=== PATIENT | male | born 1955 | race Caucasian/White ===

== ENCOUNTER 2019-03-09 08:08 | Outpatient (CLI) | payer BC ==
--- NOTE | 2019-03-09 09:08 | MRI ---
MRI OF BRAIN WITHOUT CONTRAST: 03/09/19 HISTORY: Abnormal gait. Loss of balance. FINDINGS: No restricted diffusion is seen. No evidence of infarct, hemorrhage, midline shift, or abnormal extra -axial fluid collections are seen. The ventricular size is normal and the basilar cisterns patent. No signal abnormalities are noted on the highly sensitive FLAIR images. No blood products are noted on the gradient echo sequences. There is mucocele cyst versus a polyp on the floor of the right maxillar y sinus. IMPRESSION: Unremarkable unenhanced MRI OF the brain. POS: YON
== END 2019-03-09 08:09 | disposition home or self-care (01) ==
LOC: SCSMRI 08:08
PROVIDERS: ATTEND Psychiatry & Neurology Neurology
DX: R26.89 Other abnormalities of gait and mobility (principal)
CPT/HCPCS: 70551

== ENCOUNTER 2019-05-06 07:31 | Outpatient (CLI) | payer BC ==
--- NOTE | 2019-05-06 09:46 | RAD ---
EXAM: Cervical spine 3 views including flexion and extension views HISTORY: Pain, thoracic pain, abnormal gait issues COMPARISON: Cervical spine MRI FINDINGS: No evidence for acute fracture or dislocation involving the visualized spine. There are disc osteophytosis and facet arthrosis changes. No abnormal retrolisthesis or anterolisthesis or evidence for abnormal translation between flexion an d extension. No evidence for a bone lesion. IMPRESSION: Spondylosis. No significant acute process.
--- NOTE | 2019-05-06 11:01 | MRI ---
MRI CERVICAL SPINE WITHOUT CONTRAST: HISTORY: Balance issues. Pain. Bilateral leg weakness and imbalance x1 year. COMPARISON: None. TECHNIQUE: A cervical spine MRI is performed without intravenous Gadolinium administration. Multisequential, mul tiplanar imaging is performed. FINDINGS: Straightening of normal cervical lordosis may be due to patient position or muscle spasm. No signific ant STIR hyperintensity to suggest vertebral body edema or ligamentous injury. Appropriate T1 marrow signal intensity of the cervical vertebrae. Cervical spine vertebral body heigh t is maintained. No fracture. Spondylolisthesis: 2.0 mm of retrolisthesis of C3 upon C4 1.6 mm of retrolisthesis of C4 upon C5 1.4 mm of retrolisthesis of C5 upon c6 The visualized brain parenchyma, cervicomedullary junction and cervical cord from C2 through C5 is un remarkable. The cervical cord at C7 and the upper thoracic cord have appropriate signal intensity. C2-C3: No significant central canal stenosis or significant neural foraminal narrowing. C3-C4: Broad-based disk osteophyte complex causes mass effect upon the left and right aspects of the central spinal canal. There is mass effect and deformity of the right hemicord without cord hyperinte nsity. Mild to moderate central canal stenosis. Moderate to severe bilateral neural foraminal narrowi ng due to uncovertebral hypertrophy. C4-C5: Broad-based disk osteophyte complex effaces the subarachnoid space. There is mass effect and d eformity of the cervical cord. Moderate to severe central canal stenosis. Moderate to severe bilatera l neural foraminal narrowing due to uncovertebral hypertrophy. C5-C6: Broad-based disk osteophyte complex effaces the subarachnoid space. There is moderate to sever e central canal stenosis. Moderate to severe bilateral foraminal narrowing. At the C6 vertebral body there appears to be a large ossific lesion, measuring 1.1 cm anterior-camp director ior x 1.0 cm medial-lateral. On the T1 and T2 weighted images the signal intensity is similar to the adjacent osseous structures. There is resultant severe central canal stenosis with rightward deviatio n of the cord. There is T2 cord hyperintensity. Mild bilateral neural foraminal narrowing. C6-C7: There is T2 hyperintensity in the cord, likely representing cord edema. C7-T1: The rightward deviated cord does come back to midline and there is no significant central rafal l stenosis or significant foraminal narrowing. IMPRESSION: Severe central canal stenosis at C6-C7 with rightward deviation of the cord and T2 hyperintensity in the cord. The mass effect and deviation are presumed to be due to an osseous structure in the central spinal canal. Better interrogation with a cervical myelogram is recommended. CODE T POS: OFF
--- NOTE | 2019-05-06 11:20 | MRI ---
MRI THORACIC SPINE WITHOUT CONTRAST: HISTORY: Bilateral leg weakness and imbalance x1 year. COMPARISON: None. FINDINGS: Appropriate T1 marrow signal intensity of the thoracic vertebrae. Thoracic spine vertebral body heigh t is maintained. There is no fracture. No significant STIR hyperintensity to suggest vertebral body e jennie or ligamentous injury. Appropriate signal intensity of the paraspinal muscles. Appropriate signal intensity of the visualized mediastinum, lung parenchyma and solid organs. The thoracic cord has a normal size and signal intensity. No cord expansion. No cord malacia. The con us medullaris extends beyond the T12 level. T3-T4: Minimal left and right paracentral disk bulges with minimal central canal stenosis. T4-T5: T5-T6: Left paracentral disk bulge with mild central canal stenosis. T6-T7: Broad-based disk bulge with mild central canal stenosis. Subarachnoid space is effaced ventral ly. Minimal flattening of the thoracic cord. T7-T8: Left paracentral disk bulge abuts the thecal sac. Mild central canal stenosis. T8-T9: Based on the sagittal images, T8-T9 has mild central canal stenosis. T9-T10: Mild central canal stenosis due to left and right paracentral disk bulges. IMPRESSION: Mild degenerative changes of the thoracic spine. No cord signal abnormality. POS: OFF
== END 2019-05-06 07:32 | disposition home or self-care (01) ==
LOC: MRI 07:31 → RAD 07:32
PROVIDERS: ATTEND Neurological Surgery
DX: R26.89 Other abnormalities of gait and mobility (principal); M54.6 Pain in thoracic spine; M47.812 Spondylosis without myelopathy or radiculopathy, cervical region; M47.816 Spondylosis without myelopathy or radiculopathy, lumbar region; M48.02 Spinal stenosis, cervical region
CPT/HCPCS: 72040; 72050; 72141; 72146

== ENCOUNTER 2019-05-19 16:10 | Outpatient (CLI) | payer BC ==
--- NOTE | 2019-05-19 16:59 | CT ---
CT CERVICAL SPINE WITHOUT CONTRAST: 05/19/19 INDICATIONS: Cervical myelopathy. Correlation made to MRI performed 05/06/19 which revealed a mass lesion in the spinal canal at C6. FINDINGS: Moderate degenerative changes of the cervical spine noted. Loss of disc space with degenerative hyper trophic changes are seen at all levels, most prominent at C4-5 and C5-6. Slight posterolisthesis at C 3-4, C4-5 and C5-6 is noted. Prominent posterior spondylosis at these levels. At C3-4, spondylitic change abuts the anterior cord. Facet and uncinate hypertrophy results in right foraminal stenosis. There is displacement of the traversing right nerve root. At C4-5, posterior spondylosis impinges on a compressive anterior cord. Bilateral foraminal stenosi s due to bony hypertrophic change. At C5-6, posterior spondylitic changes compress the anterior cord. Bilateral foraminal stenosis due t o facet and uncinate hypertrophy. There is a large calcification which appears to project from the facet joint on the left at C6-7 into the spinal canal. This large hypertrophic calcification measures up to 1.5 cm in axial plane. It res ults in severe central canal stenosis and cord compression. There is associated severe left foramina l stenosis due to this hypertrophic change and intraspinal calcification. At C7-T1, no significant abnormality. IMPRESSION: 1. A large hypertrophic calcification arises from the facet joint on the left at C6-C7 and proje cts into the spinal canal producing severe central canal stenosis and cord compression. There is kavya re left foraminal stenosis at this level. This calcification within the spinal canal measures 1.5 cm. 2. Spondylitic changes are also noted at C3-4, C4-5 and C5-6 with central canal and foraminal st enosis at these levels as described above. POS: TPC
== END 2019-05-19 16:11 | disposition home or self-care (01) ==
LOC: SCSCT 16:10
PROVIDERS: ATTEND Neurological Surgery
DX: G95.89 Other specified diseases of spinal cord (principal); M46.92 Unspecified inflammatory spondylopathy, cervical region; M48.02 Spinal stenosis, cervical region; M50.823 Other cervical disc disorders at C6-C7 level; G95.20 Unspecified cord compression
CPT/HCPCS: 72125

== ENCOUNTER 2019-05-20 05:42 | Inpatient (IN) | payer BC ==
[2019-05-19 11:29] VITALS: BMI 25.7
[2019-05-20] MEDS ORDERED: Sodium Chloride 0.9% 10 ML ONE (06:15)
[2019-05-20] MEDS ORDERED: Bacitracin Zinc Ointment 30 gm TUBE ONE (06:15)
[2019-05-20] MEDS ORDERED: Bupivacaine HCl 0.5%/Epinephrine 1:200,000/PF 30 ml Vial ONE (06:15)
[2019-05-20] MEDS ORDERED: Thrombin 5000 UNITS/5 ML VIAL ONE (06:15)
[2019-05-20] MEDS ORDERED: Midazolam HCl 2 mg/2 ml Vial ONE (06:31)
[2019-05-20] MEDS ORDERED: Fentanyl 250 MCG/5 ML VIAL ONE (06:31)
[2019-05-20 06:52] LABS: #Lymphocytes 1.4 thou/uL (1.20-3.40); #Monocytes 0.6 thou/uL (0.11-0.59); %Basophils 0.4 % (0.0-1.0); %Eosinophils 0.3 % (0.0-10.0); %Lymphocytes 17.9 % (21.0-51.0); %Monocytes 6.9 % (0.0-10.0); %Neutrophils 74.5 % (42.0-75.0); Mean Corpuscular HGB CONC 35.3 g/dL (32.0-36.0); Mean Corpuscular Hemoglobin 32.7 pg (27.0-31.0); Mean Corpuscular Volume 92.5 fL (78.0-98.0); Platelet Count 269 thou/uL (130-400); RBC Distribution Width 12.1 % (11.5-14.5); Red Blood Cell (RBC) Count 4.59 mill/uL (4.70-6.10); White Blood Cell (WBC) Count 8.1 thou/uL (4.8-10.8)
[2019-05-20 06:56] LABS: INR-International Normal Ratio 0.9; PTT 24.1 SEC (22.9-36.1); Prothrombin Time 12.1 SEC (12.0-14.7)
[2019-05-20] MEDS ORDERED: Pantoprazole 40 MG VIAL ONE (07:28)
[2019-05-20] MEDS ORDERED: Phenylephrine HCL 10 MG/ML VIAL ONE (07:48)
[2019-05-20] MEDS ORDERED: Sodium Chloride 0.9% 20 ML ONE (09:10)
[2019-05-20] MEDS ORDERED: SUGAMMADEX SODIUM 200 MG/2 ML VIAL ONE (12:00)
[2019-05-20] MEDS ORDERED: Morphine 2 MG/ML SYRINGE SLOW IVP PRN (12:06)
[2019-05-20] MEDS ORDERED: Acetaminophen/Codeine 30-300mg Tablet PO PRN ×2 (12:06)
[2019-05-20] MEDS ORDERED: Bisacodyl 10 MG SUPP PR PRN (12:06)
[2019-05-20] MEDS ORDERED: HYDROcodone/Acetaminophen 7.5/325 mg Tablet PO PRN (12:06)
[2019-05-20] MEDS ORDERED: tiZANidine HCl 4 MG TAB PO PRN (12:06)
[2019-05-20] MEDS ORDERED: Morphine 4 MG/ML VIAL SLOW IVP PRN (12:06)
[2019-05-20] MEDS ORDERED: diphenhydrAMINE 50 MG/ML VIAL IVP PRN (12:06)
[2019-05-20] MEDS ORDERED: Acetaminophen 325 MG TAB PO PRN (12:06)
[2019-05-20] MEDS ORDERED: Fleet Enema 133 ML BOT PR PRN (12:06)
[2019-05-20] MEDS ORDERED: Promethazine 25 MG TAB PO PRN (12:06)
[2019-05-20] MEDS ORDERED: diphenhydrAMINE 25 MG CAP PO PRN (12:06)
[2019-05-20] MEDS ORDERED: traMADol HCl 50 MG TAB PO PRN ×2 (12:06)
[2019-05-20] MEDS ORDERED: Promethazine HCl 12.5 MG SUPP PR PRN (12:06)
[2019-05-20] MEDS ORDERED: Promethazine HCl 25 MG/ML VIAL IM PRN ×2 (12:06→12:19)
[2019-05-20] MEDS ORDERED: Ondansetron PF 4 MG/2 ML Vial IVP PRN (12:06)
[2019-05-20] MEDS ORDERED: Acetaminophen 650 MG Suppository PR PRN (12:06)
[2019-05-20] MEDS ORDERED: Scopolamine 1.5 mg/72 hour Patch TD SCH (12:15)
[2019-05-20] MEDS ORDERED: Promethazine HCl 25 MG/ML VIAL SLOW IVP PRN (12:19)
[2019-05-20] MEDS ORDERED: Ondansetron HCl/PF 4 MG/2 ML Vial IVP PRN (12:19)
[2019-05-20] MEDS ORDERED: Morphine 4 MG/ML VIAL ONE (12:30)
[2019-05-20] MEDS ORDERED: Fentanyl 100 MCG/2 ML VIAL ONE (12:50)
[2019-05-20] MEDS: Sodium Chloride 0.9% 1,000 ML IV SCH (13:25)
[2019-05-20] MEDS: CEFAZOLIN 2 GM in Premix Bag 1 BAG IVPB SCH ×2 (16:03→21:00)
--- NOTE | 2019-05-20 17:38 | OP ---
DATE OF PROCEDURE: 05/20/2019 REPEAT CHIEF: None. PREOPERATIVE INDICATION: Prevent further neurological deterioration. 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 PROCEDURES PERFORMED: Decompressive laminectomy, facetectomy, and foraminotomy , C3, C4, C5, C6, and C7; microsurgical resection of massive osteophyte from left C6- C7 facet joint; lateral mass screw and enrique instrumentation, C6-C7; posterolateral arthrodesis, C6-C7; local morselized autograft and morselized allograft; and operating microscope. PREOPERATIVE MEDICATIONS: Ancef 2 g IV. DRAIN NUMBER: One. DRAIN TYPE: 10-Kinyarwanda Tu. DESCRIPTION OF PROCEDURE: The patient was brought to the operating room. General endotracheal anesthesia was induced. A Corona pin and housekeeper head were attached to the patient's head. Keeping the neck in normal anatomic alignment, we carefully rolled the patient into the prone position with his chest and hips supported by gel-filled chest rolls. We mobilized the head with the Corona attachment for the operating table. Hair was removed from the back of the scalp with electric clippers. We marked a midline incision on the back of the neck. A lateral fluoro radiograph was used to help plan our incision. The back of the neck was sterilely prepped and draped. We opened with a 10 blade knife and controlled bleeding with bipolar and monopolar cautery. We used monopolar cautery to dissect through subcutaneous tissues to the ligamentum nuchae. We incised the ligament in the middle and reflected the paraspinal muscles off the spinous processes and laminae from C3 through C7. Self-retaining retractors were placed, and a lateral fluoro radiograph confirmed the levels upon which we were operating. We then used a Leksell bone rongeur to remove the spinous processes from C3 to the top of C7. We thinned the laminae with the Stille rongeurs. We then began our decompression with a 2 mm Kerrison rongeur and fashioned the laminectomy at C5, C4, and C3. We widened our laminectomy defect at each level until we were lateral to the dura. We controlled epidural bleeding with gentle bipolar cautery and small pledgets of Gelfoam. At C6 and C7, the laminectomy was extremely arduous given the bony osteophyte on the left side of the canal just under the lamina. Using a high-speed drill and a katerin bur, we thinned the superior portion of the C7 lamina until we were at the ventral cortical bone. We thinned the C6 lamina as well. Using a 1 mm Kerrison rongeur, we started our C6 and C7 laminectomy by biting inferiorly down the left-sided C7 lamina and then across. Once the C7 lamina was removed and yellow ligament was removed, we could access the C6 lamina more safely, and this was removed with 1 and 2 mm Kerrison rongeurs. We widened our laminectomy defect on the right side until we were lateral to the dura. The enormous osteophyte of the medial portion of the facet joint at C6-C7 on the left side had grown into the spinal canal. It was occupying more than half of the diameter of the spinal canal. The operative microscope was brought in the field. Under microscopic magnification using microsurgical techniques, we carefully drilled away the connection between the C6-C7 facet joint and the osteophyte which had grown off it. We drilled and thinned the bone and then took multiple bites with 1 mm Kerrison rongeurs and drilled again in an iterative fashion. We thinned the bone and disconnected it. Eventually, the large bony osteophyte was freely mobile. It was smooth on its medial surface. Using Rhoton dissectors, we carefully dissected around it and it from the dura. The ventral aspect of the osteophyte was a bit more adherent, but with careful dissection, we eventually removed it in a single unit, and the dura relaxed significantly. We performed a medial facetectomy there until we were at the level of the pedicle and could visualize his both the C7 and the C8 nerve roots. The dura was intact, thankfully. We then used a 2 mm Kerrison rongeur to fashion to ensure our laminectomy was wide enough at each of the levels. We performed small foraminotomies to ensure that no nerve roots were compressed. We waxed the bone edges and controlled epidural bleeding with gentle bipolar cautery and small pledgets of Gelfoam. The C6-C7 facet joints were mobile, which was surprising given the huge osteophyte. I did not want the osteophyte to re-grow, so I elected to place lateral mass screws at C6 and C7. Operative microscope was taken out the field. Using a high-speed drill and a cutting bur, we chose entry points for our lateral mass screws. With a drill guide and a twist drill, we drilled out our trajectories for lateral mass screws superiorly and laterally at both C6 and C7. We probed the trajectories and found it completely encased in bone. We straight away placed 12 mm lateral mass screws at C6 and C7 bilaterally and dropped our rods into the screw heads. Using a counter-torque mechanism, we ensured that the caps were adequately torqued over the rods. We then irrigated copiously with bacitracin irrigation. We decorticated the lateral aspect of the lateral masses at C6 and C7 and over the decorticated bone. We left demineralized bone matrix and morselized autograft. The autograft was prepared from a laminectomy bone, which was cleaned of soft tissue attachments, morselized, and added into demineralized bone matrix as part of our posterolateral fusion substrate. We tunneled the drain inferiorly through a separate stab incision. We treated the wound with vancomycin powder, and we infused local anesthetic in the paraspinal muscles. We closed the wound in anatomical layers, and we applied a sterile dressing. This was a clean case, no contamination. Job ID: [id number] [facility]
[2019-05-20] MEDS: Dexamethasone 4 MG TAB PO SCH ×2 (18:07→23:50)
[2019-05-20] MEDS: HYDROcodone/Acetaminophen 7.5/325 mg Tablet PO PRN ×2 (18:31→22:36)
[2019-05-20] MEDS: Cyclobenzaprine 10 MG TAB PO PRN (22:35)
[2019-05-21] MEDS: Sodium Chloride 0.9% 1,000 ML IV SCH ×2 (03:02→18:42)
[2019-05-21] MEDS: HYDROcodone/Acetaminophen 7.5/325 mg Tablet PO PRN ×4 (04:27→23:38)
[2019-05-21] MEDS: Tamsulosin HCl 0.4 MG CAP PO SCH (05:59)
[2019-05-21] MEDS: Dexamethasone 4 MG TAB PO SCH ×4 (05:59→23:38)
[2019-05-21] MEDS: CEFAZOLIN 2 GM in Premix Bag 1 BAG IVPB SCH ×3 (05:59→21:37)
--- NOTE | 2019-05-21 06:59 | PRG ---
DATE OF SERVICE: 05/21/2019 Mr. Ortiz is one day out from a cervical laminectomy from C3 to C7 and posterolateral fusion at six C6-C7 for severe stenosis and a huge exophytic bone spur occupying the majority of the spinal canal at C6-C7. Overnight, Mr. Ortiz's neck has been sore. His drain output was recorded yesterday evening, but I do not see any other notes on our electronic charting system about the volume of drainage. The vital signs have been stable. Neurologically stable. There are no new deficits. No upper motor neuron weakness that I can appreciate. There is subjective improved sensation in the hands and feet. He was able to ambulate yesterday. Mr. Ortiz will have his drain monitored. Once the output is less than 5 mL/h on average, then the drain can be removed. We will give him one more dose of IV antibiotics after drain removal. He will work with Physical Therapy today and get back to safety with activities of daily living. Once the drain is out and he is safe, then he can be discharged. Job ID: [id number] [facility]
[2019-05-21] MEDS: Cyclobenzaprine 10 MG TAB PO PRN ×2 (08:52→18:15)
[2019-05-21] MEDS ORDERED: FLU VACC QS2019-20(6MOS UP)/PF 60 MCG/0.5 ML SYRINGE IM ONE (09:00)
[2019-05-21] MEDS ORDERED: Bisacodyl 5 MG TAB PO SCH (19:15)
[2019-05-22] MEDS: Sodium Chloride 0.9% 1,000 ML IV SCH (03:21)
[2019-05-22] MEDS: CEFAZOLIN 2 GM in Premix Bag 1 BAG IVPB SCH (03:22)
[2019-05-22] MEDS: Dexamethasone 4 MG TAB PO SCH (05:11)
[2019-05-22] MEDS: Tamsulosin HCl 0.4 MG CAP PO SCH (05:11)
[2019-05-22] MEDS: Cyclobenzaprine 10 MG TAB PO PRN (05:15)
[2019-05-22 07:34] VITALS: BP 138/77; TEMP 98.5
[2019-05-22] MEDS: HYDROcodone/Acetaminophen 7.5/325 mg Tablet PO PRN (08:56)
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
--- NOTE | 2019-05-25 07:47 | DIS ---
DATE OF ADMISSION: 05/20/2019 DATE OF DISCHARGE: 05/22/2019 The patient is a 63-year-old male, known for recent evaluation of cervical stenosis by Dr. Moser, who underwent C3 through C7 cervical laminectomy and C6 through C7 posterior fusion. Following the surgery, he was transitioned to the Med/Surg floor, where his pain has been well-controlled with p.o. medications, he is tolerating a regular diet, and he is voiding appropriately. His NATALIE drain output trended downward and was removed on postoperative day #1. He is otherwise doing well and ambulating easily in the hallways and feels that he is ready to go home today. On exam today, he is awake, alert, in no acute distress. He has free active range of motion of all extremities. No focal motor weakness. No reflex asymmetry. His incision is clean, dry, and intact. We will plan to dismiss the patient to home. I have discussed home care precautions. I have provided him with scripts for [place], Zanaflex, Decadron taper, and Keflex. He will follow up with Dr. Moser in 2 weeks. Job ID: [id number]
== END 2019-05-22 11:08 | disposition home or self-care (01) | DRG 472 ==
LOC: SURG A 05:42 → EDSTATUS 13:02 → SURG A 13:29
PROVIDERS: ADMIT Neurological Surgery; ATTEND Neurological Surgery
PROC: 0RG1071 Fusion of Cervical Vertebral Joint with Autologous Tissue Substitute, Posterior Approach, Posterior Column, Open Approach (ICD-10-PCS; principal; 2019-05-20)
PROC: 00NW0ZZ Release Cervical Spinal Cord, Open Approach (ICD-10-PCS; 2019-05-20)
PROC: 0RB30ZZ Excision of Cervical Vertebral Disc, Open Approach (ICD-10-PCS; 2019-05-20)
PROC: 3E02340 Introduction of Influenza Vaccine into Muscle, Percutaneous Approach (ICD-10-PCS; 2019-05-20)
DX: M48.02 Spinal stenosis, cervical region (principal); M47.12 Other spondylosis with myelopathy, cervical region; Z23 Encounter for immunization; Z90.49 Acquired absence of other specified parts of digestive tract; Z87.891 Personal history of nicotine dependence
CPT/HCPCS: 72125; 76000; 85025; 85610; 85730; C1713; C1768; C9113; J0670; J0690; J2250; J2270; J2370; J3010; J3370; J3490; J8540

== ENCOUNTER 2019-07-29 08:06 | Outpatient (CLI) | payer BC ==
--- NOTE | 2019-07-29 08:20 | RAD ---
EXAM: XR Cerv Sp Ap Lat STANDARD DATE: 07/29/2019 12:00 AM INDICATION: Follow-up surgery COMPARISON: Prior radiographs dated May 06, 2019 FINDING: Since the comparison examination, there is been interval placement of bilateral articular p illar screws with interconnecting rods at C6-C7. There is also been interval laminectomies from C3 through C7. The moderate to severe multilevel disc degenerative disease and spinal alignment is uncha nged. Bilateral masses are symmetric. Lung apices are clear. IMPRESSION:Postoperative cervical spine. Stable cervical spondylosis.
== END 2019-07-29 08:07 | disposition home or self-care (01) ==
LOC: TBSIIMAG 08:06
PROVIDERS: ATTEND Neurological Surgery
DX: M54.2 Cervicalgia (principal); M47.812 Spondylosis without myelopathy or radiculopathy, cervical region; Z98.890 Other specified postprocedural states
CPT/HCPCS: 72040

== ENCOUNTER 2020-04-28 13:43 | Outpatient (CLI) | payer BC ==
--- NOTE | 2020-04-28 14:43 | RAD ---
CERVICAL SPINE SERIES: Date: 04/28/2020 HISTORY: Neck pain, follow-up surgery. COMPARISON: 07/29/2019 exam. FINDINGS: Post laminectomy changes are seen extending from C3 to C6. Facet screws are present at C6-7 level. No abnormal motion on the flexion or extension views. Disc narrowing is most pronounced at C4-5 and C5- 6. IMPRESSION: Stable postop change. POS: LYN
== END 2020-04-28 13:44 | disposition home or self-care (01) ==
LOC: SCSRAD 13:43
PROVIDERS: ATTEND Neurological Surgery
DX: M54.12 Radiculopathy, cervical region (principal); Z98.890 Other specified postprocedural states
CPT/HCPCS: 72050